=== PATIENT | male | born 1990 | race American Indian/Alaskan Native ===

== ENCOUNTER 2017-06-12 14:02 | Emergency (ER) | payer MEDICAID ==
[2017-06-12 15:24] VITALS: BP 166/116
[2017-06-12 16:08] LABS: Alanine Aminotransferase 43 units/L (7-56); Albumin 4.5 g/dL (3.9-5); Albumin/Globulin Ratio 1.3 %; Alkaline Phosphatase 68 units/L (35-129); Anion Gap 19 mmol/L; BUN/Creatinine Ratio 4; Blood Urea Nitrogen 4 mg/dL (9-20); Calcium 9.7 mg/dL (8.4-10.2); Carbon Dioxide 25 mmol/L (22-30); Chloride 94.9 mmol/L (98-107); Glucose 113 mg/dL (75-100); Lipase 117 units/L (13-60); Potassium 4.2 mmol/L (3.6-5.0); Sodium 135 mmol/L (137-145); Total Protein 8.1 g/dL (6.3-8.2)
[2017-06-12 16:18] LABS: Basophils % (Auto) 0.6 % (0.0-1.8); Eosinophils % (Auto) 1.1 % (0.0-4.3); Hematocrit 46.6 % (35.5-45.6); Hemoglobin 15.7 gm/dl (11.8-15.2); Mean Corpuscular HGB Conc 34 % (32-34); Mean Corpuscular Hemoglobin 31 pg (28-32); Mean Corpuscular Volume 93 fl (84-94); Platelet Count 348 K/mm3 (140-440); Red Blood Count 4.99 M/mm3 (3.65-5.03); Red Cell Distribution Width 13.7 % (13.2-15.2); White Blood Count 9.8 K/mm3 (4.5-11.0)
[2017-06-12 21:12] LABS: Bilirubin,Urine NEG (Negative); Blood,Urine NEG (Negative); Ketones,Urine NEG (Negative); Leukocyte Esterase,Urine TR (Negative); Mucus,Urine 2+ /HPF; Nitrite,Urine NEG (Negative); Protein,Urine <15 mg/dL mg/dL (Negative); Urobilinogen,Urine < 2.0 mg/dL (<2.0)
--- NOTE | 2017-06-12 23:29 | Emergency Department Report ---
HPI - General Chief Complaint: Abdominal Pain Time Seen by Provider: 06/12/17 22:55 - HPI HPI: This is a 27 year-old male presents to the emergency department from home with a 3 day history of upper abdominal pain, nausea, vomiting. He denies any fever, dysuria, diarrhea, constipation. He tried some Tylenol for his symptoms that any relief. He has a past medical history of hypertension. He denies any recent travel or sick contacts at home. His primary care physician is a Dr. More. ED Past Medical Hx - Past Medical History Hx Hypertension: Yes Hx Congestive Heart Failure: No Hx Diabetes: No Hx Asthma: No Hx COPD: No Hx HIV: No - Surgical History Past Surgical History?: No - Social History Smoking Status: Current Every Day Smoker Substance Use Type: Alcohol - Medications Home Medications: Home Medications Medication Instructions Recorded Confirmed Last Taken Type Clonidine HCl [Kapvay] 0.1 mg PO BID #60 tab.er.12h 07/10/16 Unknown Rx Metoprolol [Lopressor TAB] 25 mg PO BID #60 tablet 07/10/16 Unknown Rx HYDROcodone/ACETAMINOPHEN [[place] 1 each PO Q6H PRN #10 tablet 06/13/17 Unknown Rx 5-325 Tablet] Ondansetron [Zofran Odt] 4 mg PO Q8H PRN #10 tab.rapdis 06/13/17 Unknown Rx ED Review of Systems ROS: Stated complaint: ABDOMINAL PAIN Other details as noted in HPI Comment: All other systems reviewed and negative Constitutional: denies: chills, fever Eyes: denies: eye pain, eye discharge, vision change ENT: denies: ear pain, throat pain Respiratory: denies: cough, shortness of breath, wheezing Cardiovascular: denies: palpitations, edema Gastrointestinal: abdominal pain, nausea, vomiting Genitourinary: denies: urgency, dysuria Musculoskeletal: denies: back pain, joint swelling, arthralgia Skin: denies: rash, lesions Physical Exam - Physical Exam Vital Signs: Vital Signs 06/12/17 15:21 Temperature 98.2 F Pulse Rate 89 Respiratory 20 Rate Blood Pressure 166/116 O2 Sat by Pulse 100 Oximetry Physical Exam: GENERAL: The patient is well-developed well-nourished. HENT: Normocephalic. Atraumatic. Patient has moist mucous membranes. EYES: Extraocular motions are intact. Pupils equal reactive to light bilaterally. NECK: Supple. Trachea is midline. CHEST/LUNGS: Clear to auscultation. There is no respiratory distress noted. HEART/CARDIOVASCULAR: Regular. There is no tachycardia. There is no gallop rub or murmur. ABDOMEN: Abdomen is soft. There is some tenderness to palpation to the upper quadrants of the abdomen. No guarding or rebound tenderness. Patient has normal bowel sounds. There is no abdominal distention. SKIN: Skin is warm and dry. NEURO: The patient is awake, alert, and oriented. The patient is cooperative. The patient has no focal neurologic deficits. The patient has normal speech. MUSCULOSKELETAL: There is no tenderness or deformity. There is no limitation range of motion. There is no evidence of acute injury. ED Course Vital Signs 06/12/17 15:21 Temperature 98.2 F Pulse Rate 89 Respiratory 20 Rate Blood Pressure 166/116 O2 Sat by Pulse 100 Oximetry ED Medical Decision Making - Lab Data Result diagrams: 06/12/17 15:33 06/12/17 15:33 - EKG Data -: EKG Interpreted by Me EKG shows normal: sinus rhythm, axis, intervals, QRS complexes (early repolarization), ST-T waves Rate: normal - EKG Data When compared to previous EKG there are: previous EKG unavailable Interpretation: other (sinus rhythm, early repolarization) - Radiology Data Radiology results: report reviewed, image reviewed interpreted by me: Abdominal x-ray shows nonspecific nonobstructive bowel gas. PROCEDURE: US ABDOMEN LIMITED TECHNIQUE: Real-time sonography was performed of the right upper quadrant with image documentation. CPT 00189 HISTORY: Upper abd pain COMPARISON: Prior CT scan abdomen and pelvis 07/09/2016 FINDINGS: Liver echogenicity is mildly diffusely increased consistent with fatty infiltration. No discrete liver lesions are identified. The intrahepatic ducts are not distended. Common bile duct is normal caliber measuring 2.8 millimeters. The gallbladder appears normal. No evidence gallstones or gallbladder wall thickening. Proximal abdominal aorta showed no abnormality. The right kidney is unremarkable measuring 10.7 centimeters greatest length. Visualized portions of the pancreas show no focal abnormalities.. IMPRESSION: Fatty infiltration the liver. No other abnormalities are seen. Gallbladder is normal in appearance. - Medical Decision Making 27-year-old male presents with 3 day history of some upper abdominal pain, nausea and vomiting. Labs are mostly unremarkable except for a elevated lipase level of about 115. Abdominal x-ray shows nonspecific nonobstructive bowel gas. Ultrasound is mostly a normal examination. What was seen of the pancreas appears normal but it was not all visualized with this examination. He was given a Zofran ODT and a [place] and upon reevaluation he is sleeping and resting comfortably. He was able to keep down some fluids without any further nausea or vomiting. This is all very similar to a previous visit he had about one year ago that was some alcohol-induced pancreatitis. This time however there is no leukocytosis and the lipase level is slightly lower. However since he is feeling improved and the workup has thus far been relatively negative, I did not feel that a CT scan of the abdomen and pelvis was indicated at this time. Even if he has some mild pancreatitis in the portion of the nonvisualized pancreas, we discussed staying away from any further alcohol use and mostly doing oral rehydration. He will go home with some pain medication and nausea medication and referrals for primary care. He will return to the ER with any worsening of his symptoms or any acute distress. Vital signs stable throughout his ED course. Discharge instructions were given while he was in the emergency department and all of his questions have been answered. - Differential Diagnosis pancreatitis, cholecystitis, cholelithiasis, hepatitis, gastritis Critical Care Time: No Critical care attestation.: If time is entered above; I have spent that time in minutes in the direct care of this critically ill patient, excluding procedure time. ED Disposition Clinical Impression: Abdominal pain Qualifiers: Abdominal location: unspecified location Qualified Code(s): R10.9 - Unspecified abdominal pain Nausea & vomiting Qualifiers: Vomiting type: unspecified Vomiting Intractability: non-intractable Qualified Code(s): R11.2 - Nausea with vomiting, unspecified Hypertension Qualifiers: Hypertension type: essential hypertension Qualified Code(s): I10 - Essential ( primary) hypertension Disposition: DC-01 TO HOME OR SELFCARE Is pt being admited?: No Condition: Stable Instructions: Acute Nausea and Vomiting (ED), Abdominal Pain (ED), Hypertension (ED) Additional Instructions: Please follow up with a primary care physician in the next few days. Return to the emergency Department with any worsening of your abdominal pain, inability to stay hydrated, development of fever or any worsening of your symptoms or any acute distress. I recommend staying away from any alcohol consumption. Try and stay away from foods that are high in salt and caffeinated products to help with your blood pressure. Keep a blood pressure log. You have been prescribed a medication that is sedating and therefore should not be taken prior to driving, working, and responsible for children and in no way should be mixed with alcohol of any quantity. Prescriptions: HYDROcodone/ACETAMINOPHEN [[place] 5-325 Tablet] 1 each PO Q6H PRN #10 tablet PRN Reason: Nausea Ondansetron [Zofran Odt] 4 mg PO Q8H PRN #10 tab.rapdis PRN Reason: Nausea Referrals: PAWAN MALIK MD [Primary Care Provider] - [facility] Time of Disposition: 00:58
--- NOTE | 2017-06-12 23:56 | XRay Report ---
FINAL REPORT EXAM: XR ABDOMEN 2V HISTORY: Abd pain TECHNIQUE: Supine and upright abdomen PRIORS: None. FINDINGS: Moderate amount of stool and gas present within the colon. No evidence of colonic or small bowel dilatation. No signs of free air. No abnormal calcifications are identified. IMPRESSION: Nonobstructive bowel gas pattern. No acute abnormality seen.
[2017-06-13] MEDS ORDERED: NORCO 5/325 PO ONE (00:02)
[2017-06-13] MEDS ORDERED: ZOFRAN ODT PO ONE (00:02)
--- NOTE | 2017-06-13 00:22 | Ultrasound Report ---
FINAL REPORT PROCEDURE: US ABDOMEN LIMITED TECHNIQUE: Real-time sonography was performed of the right upper quadrant with image documentation. CPT 00635 HISTORY: Upper abd pain COMPARISON: Prior CT scan abdomen and pelvis 07/09/2016 FINDINGS: Liver echogenicity is mildly diffusely increased consistent with fatty infiltration. No discrete liver lesions are identified. The intrahepatic ducts are not distended. Common bile duct is normal caliber measuring 2.8 millimeters. The gallbladder appears normal. No evidence gallstones or gallbladder wall thickening. Proximal abdominal aorta showed no abnormality. The right kidney is unremarkable measuring 10.7 centimeters greatest length. Visualized portions of the pancreas show no focal abnormalities.. IMPRESSION: Fatty infiltration the liver. No other abnormalities are seen. Gallbladder is normal in appearance.
== END 2017-06-13 01:24 | disposition home or self-care (01) ==
LOC: ED 14:02
DX: I10 Essential (primary) hypertension (principal); R10.9 Unspecified abdominal pain; R11.2 Nausea with vomiting, unspecified; F17.200 Nicotine dependence, unspecified, uncomplicated
CPT/HCPCS: 36415; 74020; 76705; 80053; 81001; 83690; 85025; 93005; 93010; 99284; Q0162

== ENCOUNTER 2019-10-24 10:57 | Emergency (ER) | payer MEDICAID ==
[2019-10-24 11:31] VITALS: BP 169/103
--- NOTE | 2019-10-24 11:56 | Emergency Department Report ---
Chief Complaint: Skin/Abscess/Foreign Body Stated Complaint: SORE THROAT Time Seen by Provider: 10/24/19 11:52 - HPI History of Present Illness: 29 yo male states that he has a painful swelling under the L mandible that has been present x 2 days; rates pain 10 of 10 He further states that he has had this mass before and took PCN from a friend. - Exam Vital Signs: Vital Signs 10/24/19 11:30 Temperature 99.2 F Pulse Rate 96 H Respiratory 18 Rate Blood Pressure 169/103 [Right] O2 Sat by Pulse 100 Oximetry MSE screening note: Focused history and physical exam performed. Due to findings the following was ordered: ED Disposition for MSE Condition: Stable
--- NOTE | 2019-10-24 13:00 | Cat Scan Report ---
CT NECK WITHOUT INTRAVENOUS CONTRAST AND MULTIPLANAR RECONSTRUCTION CLINICAL HISTORY: MAIN: neck mass ON LEFT SIDE FOR 2 DAYS AND DIFFICULTY SWALLOWING TECHNIQUE: 3.75 mm thick contiguous axial scans were obtained from the skull base down to the aortic arch during intravenous contrast administration. In addition to evaluation of axial source images sagittal and c oronal multiplanar reconstructions were produced and reviewed for this report. FINDINGS: This abnormal study is remarkable for the presence of large stones along the expected course of the l eft Warthin's duct (left submandibular salivary gland duct). The largest of these is located in proxi mity to the hilum of the gland where a 9 mm diameter sialolith is demonstrated. More distally a 3 x 6 mm stone is identified in the distal third of the duct. An additional 3 mm diameter stone is seen ju st posterior to the mandibular symphysis. There is a low-attenuation area between the mylohyoid and g enioglossus muscles on the left which may represent a phlegmon or abscess. The left submandibular gla nd is enlarged compared to that on the right compatible with sialoadenitis. There are infiltrative ch anges in the adjacent fat extending out to and beyond the platysma muscle into the left suprahyoid ne ck and left cheek. The left platysma muscle is thickened. Multiple dental caries are identified but the process in the floor the mouth does not appear to be od ontogenic in origin. No abnormalities are seen along the course of the airway. Nasopharynx, oropharynx, hypopharynx, laryn x and visualized portions of the subglottic airway all have an unremarkable appearance. Reactive lymph nodes are observed in level 1B bilaterally, left more than right.. There is no indicat ion of pathological cervical lymphadenopathy. Retention cysts or polyps are present at the base of both maxillary sinuses. Paranasal sinuses otherw ise appear clear. The thyroid gland is normal in size and homogeneous in attenuation. No focal thyroid lesions are iden tified. Evaluation of the cervical spine reveals no significant abnormality. Normal alignment is maintained. No significant degenerative changes are identified. Evaluation of the lung apices reveals no abnormality. There is no indication of lung nodule or infilt rate. The visualized portions of the superior mediastinum have an unremarkable appearance. Enhancement of normal vascular structures is demonstrated. No areas of abnormal contrast enhancement are identified. IMPRESSION: 1. Sialolithiasis with 3 stones are seen along the expected course of left [place]'s duct. 2. Enlargement of the left submandibular salivary gland and adjacent inflammatory changes indicate a diagnosis of sialoadenitis. 3. Low attenuation along the course of the left submandibular salivary gland duct between the mylohyo id and genioglossus muscles could represent phlegmon or abscess in the floor the mouth related to uday loadenitis. All CT imaging studies performed at this facility utilize dose modulation, iterative reconstruction o r weight based dosing, if appropriate, to obtain the lowest achievable radiation dose. Signer Name: Pipe Carter MD Signed: 10/24/2019 12:56 PM Workstation Name: [id number]
[2019-10-24] MEDS ORDERED: SODIUM CHLORIDE 0.9% 1000 ML 1,000 ML IV ONE (17:00)
[2019-10-24] MEDS ORDERED: KETOROLAC 30 MG/1 ML INJ IV ONE (17:01)
[2019-10-24] MEDS ORDERED: dexAMETHasone 20 MG/5 ML VIAL IV ONE (17:01)
--- NOTE | 2019-10-24 17:02 | Emergency Department Report ---
ED ENT HPI - General Chief complaint: Skin/Abscess/Foreign Body Stated complaint: SORE THROAT Time Seen by Provider: 10/24/19 11:52 Source: patient Mode of arrival: Ambulatory Limitations: No Limitations - History of Present Illness Initial comments: 29 year old male presents to ED c/o swelling to left lower jaw. Patient states it started 2 days ago. Patient reports associated Sore throat and difficulty swallowing. He reports subjective fever but no chills. He denies any injury to jaw/face and he denies dental pain. He denies drooling, or trismus. He states he had similar 2 years ago, he remembers going to ED and was prescribed something for pain and antibiotics but he does not recall what his diagnosis was. He reports no other symptoms at this time. MD complaint: difficulty swallowing, other (Swelling left lower jaw ) -: Gradual (2 days ago ) - Related Data Previous Rx's Medication Instructions Recorded Last Taken Type Clonidine HCl [Kapvay] 0.1 mg PO BID #60 tab.er.12h 07/10/16 Unknown Rx Metoprolol [Lopressor TAB] 25 mg PO BID #60 tablet 07/10/16 Unknown Rx Clindamycin [Clindamycin CAP] 300 mg PO Q6H #40 capsule 10/24/19 Unknown Rx HYDROcodone/APAP 5-325 [[place] 1 each PO Q4HR PRN #12 tablet 10/24/19 Unknown Rx 5/325] methylPREDNISolone [Medrol 4MG 4 mg PO DAILY #1 tab.ds.pk 10/24/19 Unknown Rx DOSEPAK (21 tabs)] Allergies Allergy/AdvReac Type Severity Reaction Status Date / Time No Known Allergies Allergy Verified 07/09/16 00:52 ED Dental HPI - General Chief complaint: Skin/Abscess/Foreign Body Stated complaint: SORE THROAT Time Seen by Provider: 10/24/19 11:52 Source: patient Mode of arrival: Ambulatory Limitations: No Limitations - Related Data Previous Rx's Medication Instructions Recorded Last Taken Type Clonidine HCl [Kapvay] 0.1 mg PO BID #60 tab.er.12h 07/10/16 Unknown Rx Metoprolol [Lopressor TAB] 25 mg PO BID #60 tablet 07/10/16 Unknown Rx Clindamycin [Clindamycin CAP] 300 mg PO Q6H #40 capsule 10/24/19 Unknown Rx HYDROcodone/APAP 5-325 [[place] 1 each PO Q4HR PRN #12 tablet 10/24/19 Unknown Rx 5/325] methylPREDNISolone [Medrol 4MG 4 mg PO DAILY #1 tab.ds.pk 10/24/19 Unknown Rx DOSEPAK (21 tabs)] Allergies Allergy/AdvReac Type Severity Reaction Status Date / Time No Known Allergies Allergy Verified 07/09/16 00:52 ED Review of Systems ROS: Stated complaint: SORE THROAT Other details as noted in HPI Constitutional: fever. denies: chills ENT: throat pain, other (Left jaw swelling). denies: dental pain, hearing loss, epistaxis, congestion Respiratory: denies: cough, orthopnea, shortness of breath, SOB with exertion, SOB at rest, wheezing Cardiovascular: denies: chest pain, palpitations, edema, syncope Neurological: denies: headache, weakness, numbness, paresthesias, abnormal gait Psychiatric: denies: anxiety, depression, auditory hallucinations, visual hallucinations, homicidal thoughts, suicidal thoughts Hematological/Lymphatic: denies: easy bleeding, easy bruising ED Past Medical Hx - Past Medical History Previous Medical History?: Yes Hx Hypertension: Yes Hx Congestive Heart Failure: No Hx Diabetes: No Hx Asthma: No Hx COPD: No Hx HIV: No - Surgical History Past Surgical History?: No - Social History Smoking Status: Never Smoker Substance Use Type: None - Medications Home Medications: Home Medications Medication Instructions Recorded Confirmed Last Taken Type Clonidine HCl [Kapvay] 0.1 mg PO BID #60 tab.er.12h 07/10/16 Unknown Rx Metoprolol [Lopressor TAB] 25 mg PO BID #60 tablet 07/10/16 Unknown Rx Clindamycin [Clindamycin CAP] 300 mg PO Q6H #40 capsule 10/24/19 Unknown Rx HYDROcodone/APAP 5-325 [[place] 1 each PO Q4HR PRN #12 tablet 10/24/19 Unknown Rx 5/325] methylPREDNISolone [Medrol 4MG 4 mg PO DAILY #1 tab.ds.pk 10/24/19 Unknown Rx DOSEPAK (21 tabs)] ED Physical Exam - General Limitations: No Limitations General appearance: alert, in no apparent distress - Head Head exam: Present: atraumatic, normocephalic, normal inspection - Eye Eye exam: Present: normal appearance, PERRL, EOMI Pupils: Present: normal accommodation - ENT ENT exam: Present: mucous membranes moist - Expanded ENT Exam Expanded Mouth exam: Present: other (Left submandibular duct noted to be mildly swollen and erythematous with small amt of pus draining from it. Mod ttp left floor of mouth. ). Absent: drooling, trismus, muffled voice, tongue elevation Teeth exam: Present: normal inspection Throat exam: Positive: tonsillar erythema, other (left submandibular gland swelling with Mod ttp but no cellulitis). Negative: tonsillomegaly, tonsillar exudate, R peritonsillar mass, L peritonsillar mass - Neck Neck exam: Present: full ROM, lymphadenopathy. Absent: normal inspection, meningismus - Respiratory Respiratory exam: Absent: respiratory distress - Cardiovascular Cardiovascular Exam: Present: regular rate - Neurological Exam Neurological exam: Present: alert, oriented X3, CN II-XII intact, normal gait - Psychiatric Psychiatric exam: Present: normal affect - Skin Skin exam: Present: intact ED Course Vital Signs 10/24/19 11:30 Temperature 99.2 F Pulse Rate 96 H Respiratory 18 Rate Blood Pressure 169/103 [Right] O2 Sat by Pulse 100 Oximetry ED Medical Decision Making - Lab Data Result diagrams: 10/24/19 17:03 10/24/19 17:03 - Radiology Data Radiology results: [place] [address] Cat Scan Report Signed Patient: CARMEL GONZALEZ MR#: [id number] : 1990 Acct:[id number] Age/Sex: 29 / M ADM Date: 10/24/19 Loc: ED Attending Dr: Ordering Physician: MACHO ARTEAGA PA-C Date of Service: 10/24/19 Procedure(s): CT neck wo con Accession Number(s): [id number] cc: MACHO ARTEAGA PA-C CT NECK WITHOUT INTRAVENOUS CONTRAST AND MULTIPLANAR RECONSTRUCTION CLINICAL HISTORY: MAIN: neck mass ON LEFT SIDE FOR 2 DAYS AND DIFFICULTY SWALLOWING TECHNIQUE: 3.75 mm thick contiguous axial scans were obtained from the skull base down to the aortic arch during intravenous contrast administration. In addition to evaluation of axial source images sagittal and coronal multiplanar re constructions were produced and reviewed for this report. FINDINGS: This abnormal study is remarkable for the presence of large stones along the expected course of the left Warthin's duct (left submandibular salivary gland duct). The largest of these is located in proximity to the hilum of the gland where a 9 mm diameter sialolith is demonstrated. More distally a 3 x 6 mm stone is identified in the distal third of the duct. An additional 3 mm diameter stone is seen just posterior to the mandibular symphysis. There is a low-attenuation area between the mylohyoid and genioglossus muscles on the left which may represent a phlegmon or abscess. The left submandibular gland is enlarged compared to that on the right compatible with sialoadenitis. There are infiltrative changes in the adjacent fat extending out to and beyond the platysma muscle into the left suprahyoid neck and left cheek. The left platysma muscle is thickened. Multiple dental caries are identified but the process in the floor the mouth does not appear to be odontogenic in origin. No abnormalities are seen along the course of the airway. Nasopharynx, oropharynx, hypopharynx, larynx and visualized portions of the subglottic airway all have an unremarkable appearance. Reactive lymph nodes are observed in level 1B bilaterally, left more than right.. There is no indication of pathological cervical lymphadenopathy. Retention cysts or polyps are present at the base of both maxillary sinuses. Paranasal sinuses otherwise appear clear. The thyroid gland is normal in size and homogeneous in attenuation. No focal thyroid lesions are identified. Evaluation of the cervical spine reveals no significant abnormality. Normal alignment is maintained. No significant degenerative changes are identified. Evaluation of the lung apices reveals no abnormality. There is no indication of lung nodule or infiltrate. The visualized portions of the superior mediastinum have an unremarkable appearance. Enhancement of normal vascular structures is demonstrated. No areas of abnormal contrast enhancement are identified. IMPRESSION: 1. Sialolithiasis with 3 stones are seen along the expected course of left [place]'s duct. 2. Enlargement of the left submandibular salivary gland and adjacent inflammatory changes indicate a diagnosis of s ialoadenitis. 3. Low attenuation along the course of the left submandibular salivary gland duct between the mylohyoid and genioglossus muscles could represent phlegmon or abscess in the floor the mouth related to sialoadenitis. All CT imaging studies performed at this facility utilize dose modulation, iterative reconstruction or weight based dosing, if appropriate, to obtain the lowest achievable radiation dose. Signer Name: Pipe Carter MD Signed: 10/24/2019 12:56 PM Workstation Name: [id number] Transcribed By: Dictated By: Pipe Carter MD Electronically Authenticated By: Pipe Carter MD Signed Date/Time: 10/24/19 1256 DD/ 1244 TD/TT: - Medical Decision Making Patient presented to ED with swelling to left submandibular area/sore throat and difficulty swallowing. He reports feeling better after IV abx/steroids/pain meds. Pt has no trismus, or drooling. No stridor or respiratory distress. CT soft tissue neck reviewed as well as labs. Discussed case and results with Dr Portillo, since patient is stable with intact airway and able to control his secretions he can be discharge home. No further work up or admission indicated at this time. Pt given strict instructions to follow up with ENT and also to take antibiotics as prescribed. He was also given strict instructions to return to ED if any worsening symptoms. Critical care attestation.: If time is entered above; I have spent that time in minutes in the direct care of this critically ill patient, excluding procedure time. ED Disposition Clinical Impression: Salivary duct calculi, Sialadenitis Disposition: DC-01 TO HOME OR SELFCARE Is pt being admited?: No Does the pt Need Aspirin: No Condition: Stable Instructions: Sialoadenitis (ED) Additional Instructions: It is important that you take the antibiotics as prescribed. Also recommend s ucking on sour candy as often as possible. It is important that you follow with ENT for further evaluation. Return to ED if your symptoms worsen (inability to swallowing, drooling, difficulty breathing, worsening swelling and fever (100.5 or higher )). Prescriptions: Clindamycin [Clindamycin CAP] 300 mg PO Q6H #40 capsule methylPREDNISolone [Medrol 4MG DOSEPAK (21 tabs)] 4 mg PO DAILY #1 tab.ds.pk HYDROcodone/APAP 5-325 [[place] 5/325] 1 each PO Q4HR PRN #12 tablet PRN Reason: Pain Referrals: PAULO VALDES MD [Staff Physician] - 2-3 Days Forms: Work/School Release Form(ED) Time of Disposition: 18:20
[2019-10-24 17:32] LABS: Basophils # (Auto) 0.1 K/mm3 (0.0-0.1); Basophils % (Auto) 0.6 % (0.0-1.8); Eosinophils # (Auto) 0.4 K/mm3 (0.0-0.4); Eosinophils % (Auto) 2.7 % (0.0-4.3); Lymphocytes # (Auto) 3.7 K/mm3 (1.2-5.4); Lymphocytes % (Auto) 25.4 % (13.4-35.0); Mean Corpuscular HGB Conc 36 % (32-34); Mean Corpuscular Volume 89 fl (84-94); Monocytes # (Auto) 1.3 K/mm3 (0.0-0.8); Platelet Count 416 K/mm3 (140-440); Red Cell Distribution Width 13.7 % (13.2-15.2)
[2019-10-24 17:33] LABS: Hematocrit 42.7 % (35.5-45.6); Hemoglobin 15.5 gm/dl (11.8-15.2)
[2019-10-24 17:51] LABS: Alanine Aminotransferase 57 units/L (7-56); Albumin 4.4 g/dL (3.9-5); BUN/Creatinine Ratio 10; Blood Urea Nitrogen 10 mg/dL (9-20); Calcium 9.8 mg/dL (8.4-10.2); Hemolysis Index 5
== END 2019-10-24 18:53 | disposition home or self-care (01) ==
LOC: ED 10:57
DX: K11.5 Sialolithiasis (principal); K11.20 Sialoadenitis, unspecified; I10 Essential (primary) hypertension
CPT/HCPCS: 36415; 70490; 80053; 85025; 87040; 96365; 96375; 99284; J1100; J1885; J7030

== ENCOUNTER 2019-11-22 23:14 | Emergency (ER) | payer MEDICAID ==
--- NOTE | 2019-11-22 23:31 | Emergency Department Report ---
ED Psych HPI - General Chief Complaint: Psych Stated Complaint: MH Time Seen by Provider: 11/22/19 23:24 Source: patient Mode of arrival: Ambulatory - History of Present Illness Initial Comments: Patient is 29 years old male with history of schizophrenia and bipolar disorder. Patient presented to the ER stating that he is hearing voices asking him to kill himself and other people. Patient stated that his plan is to get coronavirus and . Patient denied any visual hallucination. Patient admitted that he has been drinking alcohol. MD Complaint: suicidal ideation, feels depressed Associated Psychiatric Symptoms: suicidal ideation, homicidal ideation, racing thoughts, auditory hallucinations History of same: Yes Quality: constant Context: recent alcohol abuse Associated Symptoms: denies other symptoms Treatments Prior to Arrival: none If Self Harm: admits thoughts of, has plan - Related Data Previous Rx's Medication Instructions Recorded Last Taken Type Clonidine HCl [Kapvay] 0.1 mg PO BID #60 tab.er.12h 07/10/16 Unknown Rx Metoprolol [Lopressor TAB] 25 mg PO BID #60 tablet 07/10/16 Unknown Rx Clindamycin [Clindamycin CAP] 300 mg PO Q6H #40 capsule 10/24/19 Unknown Rx HYDROcodone/APAP 5-325 [Henderson 1 each PO Q4HR PRN #12 tablet 10/24/19 Unknown Rx 5/325] methylPREDNISolone [Medrol 4MG 4 mg PO DAILY #1 tab.ds.pk 10/24/19 Unknown Rx DOSEPAK (21 tabs)] Allergies Allergy/AdvReac Type Severity Reaction Status Date / Time No Known Allergies Allergy Verified 07/09/16 00:52 ED Review of Systems ROS: Stated complaint: MH Other details as noted in HPI Comment: All other systems reviewed and negative Constitutional: denies: chills, fever Respiratory: denies: cough, shortness of breath Cardiovascular: denies: chest pain Gastrointestinal: denies: abdominal pain, nausea, vomiting Musculoskeletal: denies: back pain ED Past Medical Hx - Past Medical History Hx Hypertension: Yes Hx Congestive Heart Failure: No Hx Diabetes: No Hx Asthma: No Hx COPD: No Hx HIV: No - Social History Smoking Status: Unknown if ever smoked - Medications Home Medications: Home Medications Medication Instructions Recorded Confirmed Last Taken Type Clonidine HCl [Kapvay] 0.1 mg PO BID #60 tab.er.12h 07/10/16 Unknown Rx Metoprolol [Lopressor TAB] 25 mg PO BID #60 tablet 07/10/16 Unknown Rx Clindamycin [Clindamycin CAP] 300 mg PO Q6H #40 capsule 10/24/19 Unknown Rx HYDROcodone/APAP 5-325 [Henderson 1 each PO Q4HR PRN #12 tablet 10/24/19 Unknown Rx 5/325] methylPREDNISolone [Medrol 4MG 4 mg PO DAILY #1 tab.ds.pk 10/24/19 Unknown Rx DOSEPAK (21 tabs)] ED Physical Exam - General Limitations: No Limitations General appearance: alert, in no apparent distress - Head Head exam: Present: atraumatic, normocephalic, normal inspection - Eye Eye exam: Present: normal appearance, PERRL - ENT ENT exam: Present: normal exam, normal orophraynx, mucous membranes moist - Neck Neck exam: Present: normal inspection, full ROM. Absent: tenderness, meningismus, lymphadenopathy, thyromegaly - Respiratory Respiratory exam: Present: normal lung sounds bilaterally - Cardiovascular Cardiovascular Exam: Present: regular rate, normal rhythm, normal heart sounds - GI/Abdominal GI/Abdominal exam: Present: soft, normal bowel sounds. Absent: distended, tenderness, guarding, rebound, rigid, organomegaly, mass, bruit, pulsatile mass, hernia - Extremities Exam Extremities exam: Present: normal inspection, full ROM, normal capillary refill. Absent: tenderness, pedal edema, calf tenderness - Back Exam Back exam: Present: normal inspection, full ROM. Absent: CVA tenderness (R), CVA tenderness (L) - Neurological Exam Neurological exam: Present: alert, oriented X3, CN II-XII intact, normal gait, reflexes normal. Absent: motor sensory deficit - Psychiatric Psychiatric exam: Present: depressed, homicidal ideation, suicidal ideation. Absent: agitated, manic - Skin Skin exam: Present: warm, intact, normal color ED Course Vital Signs 11/22/19 23:18 Temperature 98.3 F Pulse Rate 119 H Respiratory 18 Rate Blood Pressure 156/106 [Right] O2 Sat by Pulse 99 Oximetry Critical care attestation.: If time is entered above; I have spent that time in minutes in the direct care of this critically ill patient, excluding procedure time. ED Disposition Condition: Stable
[2019-11-22 23:59] LABS: Hematocrit 45.2 % (35.5-45.6); Hemoglobin 15.4 gm/dl (11.8-15.2); Mean Corpuscular HGB Conc 34 % (32-34); Mean Corpuscular Volume 90 fl (84-94); Platelet Count 434 K/mm3 (140-440); Red Blood Count 5.01 M/mm3 (3.65-5.03); Red Cell Distribution Width 14.7 % (13.2-15.2)
[2019-11-23 00:14] LABS: BUN/Creatinine Ratio 10; Blood Urea Nitrogen 9 mg/dL (9-20); Calcium 9.7 mg/dL (8.4-10.2); Hemolysis Index 17
[2019-11-23] MEDS ORDERED: LORazepam 1 MG TAB PO ONE (01:03)
[2019-11-23 01:09] LABS: Bilirubin,Urine NEG (Negative); Blood,Urine SM (Negative); Color,Urine Colorless (Yellow); Protein,Urine <15 mg/dL mg/dL (Negative); Urobilinogen,Urine < 2.0 mg/dL (<2.0)
[2019-11-23 01:17] LABS: Amphetamine Screen,Urine PRESUMPTIVE NEGATIVE; Benzodiazepines Screen,Urine PRESUMPTIVE NEGATIVE; Cannabinoid Screen,Urine PRESUMPTIVE NEGATIVE; Cocaine Screen,Urine PRESUMPTIVE NEGATIVE; Methadone Screen,Urine PRESUMPTIVE NEGATIVE; Opiate Screen,Urine PRESUMPTIVE NEGATIVE
[2019-11-23 04:05] LABS: Eosinophils % (Manual) 0 % (0.0-4.3); Total Cells Counted 100
[2019-11-23 04:06] LABS: Large Platelets Rare; Platelet Estimate Consistent w Auto; RBC Morphology Normal
[2019-11-23 13:14] VITALS: BP 160/90
== END 2019-11-23 13:15 | disposition home or self-care (01) ==
LOC: ED 23:14
DX: R45.851 Suicidal ideations (principal); R45.850 Homicidal ideations; R44.0 Auditory hallucinations; Z79.899 Other long term (current) drug therapy; I10 Essential (primary) hypertension
CPT/HCPCS: 36415; 80048; 80307; 80320; 81001; 85007; 85025; G0480